=== PATIENT | male | born 1995 | race Caucasian/White ===

== ENCOUNTER 2019-09-14 08:56 | Emergency (ER) | payer BC ==
--- OUTSIDE RECORDS SUMMARY | 2019-09-14 08:58 | XMS REPORT | Continuity of Care Document ---
:1995 Author Organization [facility] t Address [address] [place] [address] Care Team Providers Name Role Phone Unavailable Unavailable Unavailable Problems Condition Condition Condition Status Onset Resolution Last Treating Co mments Source Name Details Category Date Date Treatment Clinician Date Anxiety Anxiety Problem Active [facility] 00:00: Medical 00 Group Gastroesop Gastroesop Problem Active [facility] h[facility]al hageal 14 da reflux Reflux 00:00: Medical disease Disease 00 Group without without esophagiti Esophagiti s s Allergies, Adverse Reactions, Alerts This patient has no known allergies or adverse reactions. Social History Smoking Status Start Date Stop Date Source Never Smoker [facility] Medications Ordered Filled Start Stop Current Ordering Indication Dosage Frequency Signature Comments Components Source Medication Medication Date Date Medication? Clinician (SIG) Name Name Nexium Nexium No Nexium [facility] Vital Signs Vital Name Observation Time Observation Value Comments Source BP Diastolic 2019-07-18 00:00:00 93 mm[Hg] [facility] Height 2019-07-18 00:00:00 65 [in_i] [facility] BMI (Body Mass 2019-07-18 00:00:00 28.5 kg/m2 [facility] Group BP Systolic 2019-07-18 00:00:00 150 mm[Hg] [facility] Body Weight 2019-07-18 00:00:00 2736 [oz_av] [facility] Procedures This patient has no known procedures. Plan of Care Planned Activity Planned Date Details Comments Source Diagnostic Test 2019-07-18 H pylori Ab, serum [facility] Pending 00:00:00 [code = H pylori Ab, Group serum] Diagnostic Test 2019-07-18 CBC w/ auto diff [facility]ending 00:00:00 [code = CBC w/ auto Group diff] Diagnostic Test 2019-07-18 CMP, serum or plasma [facility] Pending 00:00:00 [code = CMP, serum Group or plasma] Diagnostic Test 2019-07-18 TSH, serum or plasma [facility] Pending 00:00:00 [code = TSH, serum Group or plasma] Diagnostic Test 2019-07-18 hemoglobin A1c, QN, [facility] Pending 00:00:00 blood [code = Group hemoglobin A1c, QN, blood] Future Appointment 2019-09-17 Tanya Iverson [facility] 00:00:00 [facility] [address]; [place] [address] Encounters Start End Encounter Admission Attending Care Care Encounter Source Date/Time Date/Time Type Type Clinicians Facility Department ID 2019-07-18 2019-07-18 Jos Freedrick [facility] [place] - [id number] [facility] 00:00:00 00:00:00 MD [place]: [address], [facility] [place] [place] [address] , Ph. Results This patient has no known results.
[2019-09-14] MEDS ORDERED: NA CHLORIDE 0.9% 1,000 ML ONE ×2 (09:57→11:18)
[2019-09-14 10:06] LABS: Absolute Lymphocytes (CBC) 0.7 K/uL (0.7-4.9); Basophils % 0.2 % (0-1.3); Hematocrit 43.2 % (39.6-49.0); MPV 9.5 fL (7.6-11.3); RBC Red Blood Cell Count 5.21 M/uL (4.33-5.43)
[2019-09-14 10:14] LABS: Protime INR 1.03
--- NOTE | 2019-09-14 10:25 | RAD REPORT ---
EXAM DESCRIPTION: CT - Head Brain Wo Cont - 09/14/2019 10:10 am CLINICAL HISTORY: Trauma;Syncope COMPARISON: No comparisons TECHNIQUE: Axial 5 mm thick images of the head were obtained without IV contrast. All CT scans are performed using dose optimization technique as appropriate and may include automated exposure control or mA/KV adjustment according to patient size. FINDINGS: No intracranial hemorrhage, mass, edema or shift of mid-line structures. No acute infarcti on changes seen. No abnormal extra-axial fluid collections. Ventricles are normal. Mastoid air cells and visualized portions of the paranasal sinuses are clear. No acute bony findings. IMPRESSION: Negative non-contrast CT head examination.
--- NOTE | 2019-09-14 10:32 | RAD REPORT ---
EXAM DESCRIPTION: RAD - Chest Single View - 09/14/2019 10:02 am CLINICAL HISTORY: TRAUMA, chest pain TECHNIQUE: AP portable chest image was obtained 09/14/2019 10:02 am . FINDINGS: Lungs are clear. Heart and vasculature are normal. No measurable pleural effusion and no p neumothorax. No acute bony abnormality seen. No acute aortic findings suspected. IMPRESSION: No acute cardiopulmonary process.
[2019-09-14 10:34] LABS: Albumin 4.4 g/dL (3.4-5.0); Bilirubin Direct 0.1 mg/dL (0-0.2); Bilirubin Total 0.5 mg/dL (0.2-1.0); Magnesium 2.2 mg/dL (1.8-2.4); Potassium 3.8 mmol/L (3.5-5.1)
--- NOTE | 2019-09-14 11:41 | EDPHYS ---
Physician Documentation [facility] Name: Chetan Ya Age: 24 yrs Sex: Male : 1995 Arrival Date: 09/14/2019 Time: 08:58 Bed 15 Private MD: ED Physician Amado Balbuena HPI: 09/13 10:32 This 24 yrs old Male presents to ER via Wheelchair with complaints of Passed jr8 Out Prior To Arrival, Probable Seizure. 10:32 The patient has experienced syncope, collapsed, lost consciousness. Onset: The jr8 symptoms/episode began/occurred acutely, today. Duration: This was a single episode. Associated injury: Head/face: swelling, tenderness. Associated signs and symptoms: Pertinent positives: lightheadedness. Current symptoms: Currently, the patient is not experiencing any symptoms, the patient feels back to baseline, no decreased level of consciousness, no confusion, no dysphasia, no headache, no paralysis. The patient has not experienced similar symptoms in the past. The patient has not recently seen a physician. Patient stated that about 5 months ago fell and hit head. Since then have had headaches. Today while walking to go somewhere started to feel lightheaded and then had syncopal episode. Witnessed by bystanders . Historical: - Allergies: 09:26 No Known Allergies; iw - Home Meds: 09:26 None [Active]; iw - PMHx: 09:26 acid reflux; iw - PSHx: 09:26 Hernia repair; iw - Immunization history:: Adult Immunizations. - Social history:: Smoking status: Patient denies any tobacco usage or history of. ROS: 10:32 Eyes: Negative for injury, pain, redness, and discharge, ENT: Negative for injury, jr8 pain, and discharge, Neck: Negative for injury, pain, and swelling, Cardiovascular: Negative for chest pain, palpitations, and edema, Respiratory: Negative for shortness of breath, cough, wheezing, and pleuritic chest pain, Abdomen/GI: Negative for abdominal pain, nausea, vomiting, diarrhea, and constipation, Back: Negative for injury and pain, MS/Extremity: Negative for injury and deformity, Skin: Negative for injury, rash, and discoloration. 10:32 Neuro: Positive for syncope. Exam: 10:32 Eyes: Pupils equal round and reactive to light, extra-ocular motions intact. Lids and jr8 lashes normal. Conjunctiva and sclera are non-icteric and not injected. Cornea within normal limits. Periorbital areas with no swelling, redness, or edema. ENT: Nares patent. No nasal discharge, no septal abnormalities noted. Tympanic membranes are normal and external auditory canals are clear. Oropharynx with no redness, swelling, or masses, exudates, or evidence of obstruction, uvula midline. Mucous membranes moist. Neck: Trachea midline, no thyromegaly or masses palpated, and no cervical lymphadenopathy. Supple, full range of motion without nuchal rigidity, or vertebral point tenderness. No Meningismus. Chest/axilla: Normal chest wall appearance and motion. Nontender with no deformity. No lesions are appreciated. Cardiovascular: Regular rate and rhythm with a normal S1 and S2. No gallops, murmurs, or rubs. Normal PMI, no JVD. No pulse deficits. Respiratory: Lungs have equal breath sounds bilaterally, clear to auscultation and percussion. No rales, rhonchi or wheezes noted. No increased work of breathing, no retractions or nasal flaring. Abdomen/GI: Soft, non-tender, with normal bowel sounds. No distension or tympany. No guarding or rebound. No evidence of tenderness throughout. Back: No spinal tenderness. No costovertebral tenderness. Full range of motion. Skin: Warm, dry with normal turgor. Normal color with no rashes, no lesions, and no evidence of cellulitis. MS/ Extremity: Pulses equal, no cyanosis. Neurovascular intact. Full, normal range of motion. Neuro: Awake and alert, GCS 15, oriented to person, place, time, and situation. Cranial nerves II-XII grossly intact. Motor strength 5/5 in all extremities. Sensory grossly intact. Cerebellar exam normal 10:32 Head/face: Noted is hematoma, that is mild, of the mid occipital region, a laceration(s), that is superficial, 1 cm(s), of the top of head. Vital Signs: 09:19 BP 127 / 84; Pulse 108; Resp 16; Temp 98.7; Pulse Ox 100% on R/A; Weight 77.11 kg; iw Height 5 ft. 8 in. (172.72 cm); 09:27 Pulse 86; Resp 16; Pulse Ox 100% on R/A; iw 10:50 BP 136 / 76 Supine; Pulse 44; Resp 16; Pulse Ox 100% on R/A; mh5 10:52 BP 132 / 87 Sitting; Pulse 54; Resp 17; Pulse Ox 100% on R/A; mh5 10:54 BP 116 / 89 Standing; Pulse 100; Resp 12; Pulse Ox 100% on R/A; mh5 11:50 BP 127 / 80; Pulse 86; Resp 16; Pulse Ox 100% ; rb1 12:41 BP 132 / 85; Pulse 100; Resp 11; Pulse Ox 100% ; rb1 09:19 Body Mass Index 25.85 (77.11 kg, 172.72 cm) iw Dolly Coma Score: 09:43 Eye Response: spontaneous(4). Verbal Response: oriented(5). Motor Response: obeys rb1 commands(6). Total: 15. MDM: 09:28 Patient medically screened. jr8 11:39 Data reviewed: vital signs, nurses notes, lab test result(s), and as a result, I will jr8 discharge patient. Data interpreted: Pulse oximetry: on room air is 100 %. Interpretation: normal. Counseling: I had a detailed discussion with the patient and/or guardian regarding: the historical points, exam findings, and any diagnostic results supporting the discharge/admit diagnosis, lab results, the need for outpatient follow up, a family practitioner, to return to the emergency department if symptoms worsen or persist or if there are any questions or concerns that arise at home. Response to treatment: the patient's symptoms have markedly improved after treatment, patient is well hydrated. 11:39 ED course: Patient doing better after being hydrated. Was orthostatic positive. VS jr8 stable. Will d/c home to f/u with PCP. Knows to come back if worse . 09/13 09:46 Order name: PT-INR; Complete Time: 10:22 09/13 09:46 Order name: Basic Metabolic Panel; Complete Time: 10:36 09/13 09:46 Order name: CBC with Diff 09/13 09:46 Order name: LFT's; Complete Time: 10:36 09/13 09:46 Order name: Magnesium; Complete Time: 10:36 09/13 09:46 Order name: XRAY Chest (1 view); Complete Time: 10:36 09/13 09:46 Order name: EKG; Complete Time: 09:47 09/13 09:46 Order name: Cardiac monitoring; Complete Time: :09/13 09:46 Order name: EKG - Nurse/Tech; Complete Time: 11:09/13 09:46 Order name: IV Saline Lock; Complete Time: :09/13 09:46 Order name: Labs collected and sent; Complete Time: :09/13 09:46 Order name: CT Head Brain wo Cont; Complete Time: :09/13 09:46 Order name: O2 Per Protocol; Complete Time: :09/13 09:46 Order name: O2 Sat Monitoring; Complete Time: 09/13 09:46 Order name: Orthostatics; Complete Time: 11: Administered Medications: 09:55 Drug: NS 0.9% 1000 ml Route: IV; Rate: 1000 ml; Site: right antecubital; rb1 11:15 Follow up: IV Status: Completed infusion rb1 11:15 Drug: NS 0.9% 1000 ml Route: IV; Rate: 1000 ml; Site: right antecubital; rb1 12:33 Follow up: IV Status: Completed infusion rb1 Disposition: 15:24 Co-signature as Attending Physician, Amado Balbuena MD. rn Disposition: 09/14/19 11:40 Discharged to Home. Impression: Syncope and collapse, Dehydration. - Condition is Stable. - Discharge Instructions: Dehydration, Adult, Syncope. - Medication Reconciliation Form, Thank You Letter, Antibiotic Education, Prescription Opioid Use, Work release form form. - Follow up: Private Physician; When: 2 - 3 days; Reason: Recheck today's complaints, Continuance of care, Re-evaluation by your physician. - Problem is new. - Symptoms have improved. Signatures: Dispatcher [employer] Selena Stein, RN Amado Ritter MD MD rn Roszak, Josh, PA PA jr8 Abby Tavares, ANIBAL RN rb1 Corrections: (The following items were deleted from the chart) 12:46 11:40 09/14/2019 11:40 Discharged to Home. Impression: Syncope and collapse; rb1 Dehydration. Condition is Stable. Forms are Work release form, Medication Reconciliation Form, Thank You Letter, Antibiotic Education, Prescription Opioid Use. Follow up: Private Physician; When: 2 - 3 days; Reason: Recheck today's complaints, Continuance of care, Re-evaluation by your physician. Problem is new. Symptoms have improved. jr8
--- NOTE | 2019-09-14 11:41 | ER ---
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 Coronavirus screen: Proceed with normal triage. Patient denies a cough. Patient denies shortness of breath or difficulty breathing. Patient denies measured and/or subjective temperature greater than 100.4F prior to today's visit. Patient denies travel on a cruise ship or to a country the [facility] currently lists as an affected area. Patient denies contact with known and/or suspected case of COVID-19. Coronavirus screen: Ebola Screen: Patient negative for fever greater than or equal to 101.5 degrees Fahrenheit, and additional compatible Ebola Virus Disease symptoms Patient denies exposure to infectious person. Patient denies travel to an Ebola-affected area in the 21 days before illness onset. No symptoms or risks identified at this time. Initial Sepsis Screen: Does the patient meet any 2 criteria? No. Patient's initial sepsis screen is negative. Does the patient have a suspected source of infection? No. Patient's initial sepsis screen is negative. Risk Assessment: Do you want to hurt yourself or someone else? Patient reports no desire to harm self or others. Onset of symptoms was September 14, 2019. 09:19 Method Of Arrival: Wheelchair 09:19 Acuity: ALEJANDRA 3 iw Historical: - Allergies: 09: No Known Allergies; iw - Home Meds: : None [Active]; iw - PMHx: : acid reflux; iw - PSHx: 09:26 Hernia repair; iw - Immunization history:: Adult Immunizations. - Social history:: Smoking status: Patient denies any tobacco usage or history of. Screenin:43 Abuse screen: Denies threats or abuse. Nutritional screening: No deficits noted. rb1 Tuberculosis screening: No symptoms or risk factors identified. Fall Risk Fall in past 12 months (25 points). No secondary diagnosis (0 pts). IV access (20 points). Ambulatory Aid- None/Bed Rest/Nurse Assist (0 pts). Gait- Normal/Bed Rest/Wheelchair (0 pts) Mental Status- Oriented to own ability (0 pts). Total Idaz Fall Scale indicates High Risk Score (45 or more points). Fall prevention measures have been instituted. Side Rails Up X 2 Placed Close to Nursing Station 1:1 Attendant Assigned Frequent Obs/Assessments Occuring As available patient and family educated on Fall Prevention Program and Strategies. Assessment: 09:43 General: Appears comfortable, Behavior is anxious. Pain: Denies pain. Neuro: Level of rb1 Consciousness is awake, alert, obeys commands, Oriented to person, place, time, situation. Cardiovascular: Capillary refill < 3 seconds. Respiratory: Airway is patent Respiratory effort is even, unlabored, Respiratory pattern is regular, symmetrical. GI: No signs and/or symptoms were reported involving the gastrointestinal system. : No signs and/or symptoms were reported regarding the genitourinary system. Derm: Skin is pink, warm \\T\\ dry. Musculoskeletal: Range of motion: intact in all extremities, Hematoma noted to the back of his head. 10:02 Reassessment: Pt. went to CT. rb1 11:00 Reassessment: Patient appears in no apparent distress at this time. Patient and/or rb1 family updated on plan of care and expected duration. Pain level reassessed. Patient is alert, oriented x 3, equal unlabored respirations, skin warm/dry/pink. Patient denies pain at this time. 11:49 Reassessment: Patient appears in no apparent distress at this time. No changes from rb1 previously documented assessment. Pt. is talking on his telephone. 11:54 Reassessment: Discharge pending due to IV fluids infusing, provider wants the pt. to rb1 receive the all the fluids before being discharged. 12:42 Reassessment: Patient appears in no apparent distress at this time. Patient and/or rb1 family updated on plan of care and expected duration. Pain level reassessed. Patient is alert, oriented x 3, equal unlabored respirations, skin warm/dry/pink. Pt. ambulated around the nurses station without difficulty. Vital Signs: 09:19 BP 127 / 84; Pulse 108; Resp 16; Temp 98.7; Pulse Ox 100% on R/A; Weight 77.11 kg; iw Height 5 ft. 8 in. (172.72 cm); 09:27 Pulse 86; Resp 16; Pulse Ox 100% on R/A; iw 10:50 BP 136 / 76 Supine; Pulse 44; Resp 16; Pulse Ox 100% on R/A; mh5 10:52 BP 132 / 87 Sitting; Pulse 54; Resp 17; Pulse Ox 100% on R/A; mh5 10:54 BP 116 / 89 Standing; Pulse 100; Resp 12; Pulse Ox 100% on R/A; mh5 11:50 BP 127 / 80; Pulse 86; Resp 16; Pulse Ox 100% ; rb1 12:41 BP 132 / 85; Pulse 100; Resp 11; Pulse Ox 100% ; rb1 09:19 Body Mass Index 25.85 (77.11 kg, 172.72 cm) iw Dolly Coma Score: 09:43 Eye Response: spontaneous(4). Verbal Response: oriented(5). Motor Response: obeys rb1 commands(6). Total: 15. ED Course: 08:58 Patient arrived in ED. as 09:25 Triage completed. iw 09:26 Arm band placed on. iw 09:28 Abby Tavares, RN is Primary Nurse. rb1 09:28 Homer Arroyo PA is PHCP. jr8 09:28 Amado Balbuena MD is Attending Physician. jr8 09:43 Patient has correct armband on for positive identification. Bed in low position. Call rb1 light in reach. Side rails up X 1. Pulse ox on. NIBP on. 09:43 Seizure precautions initiated. rb1 09:55 Inserted saline lock: 22 gauge in right antecubital area, using aseptic technique. rb1 Blood collected. 10:02 XRAY Chest (1 view) In Process Unspecified. EDMS 10:08 CT completed. Patient tolerated procedure well. Patient moved back from CT. bq 10:10 CT Head Brain wo Cont In Process Unspecified. EDMS 11:01 EKG done, by ED staff, reviewed by Homer HEADLEY. 5 11:02 Warm blanket given. quality assurance monitor final on. 5 11:48 Wound care: to laceration located on center back of head was cleaned with soap and mh5 water. 12:43 No provider procedures requiring assistance completed. IV discontinued, intact, rb1 bleeding controlled, No redness/swelling at site. Pressure dressing applied. Administered Medications: 09:55 Drug: NS 0.9% 1000 ml Route: IV; Rate: 1000 ml; Site: right antecubital; rb1 11:15 Follow up: IV Status: Completed infusion rb1 11:15 Drug: NS 0.9% 1000 ml Route: IV; Rate: 1000 ml; Site: right antecubital; rb1 12:33 Follow up: IV Status: Completed infusion rb1 Outcome: 11:40 Discharge ordered by . jr8 12:45 Discharged to home ambulatory. rb1 12:45 Condition: stable 12:45 Discharge instructions given to patient, Instructed on discharge instructions, follow up and referral plans. Demonstrated understanding of instructions, follow-up care, Prescriptions given X none 12:46 Patient left the ED. rb1 Signatures: Dispatcher [employer] EDMS Vinita Tate Amelia as Selena Morse RN RN iw Roszak, Josh, PA PA [facility] Abby Tavares RN RN [facility] Ramya Pacheco [facility] Corrections: (The following items were deleted from the chart) 09:34 09:19 Chief complaint: Patient states: a few months ago I fell out of my flatbed truck iw at work and hit his head, was approx 5 foot fall, no LOC, was seen at urgent care at that time, no tests done. 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
[2019-09-14 12:52] VITALS: TEMP 98.7; O2SAT 100
[2019-09-14 13:00] VITALS: BP 132/85
[2019-09-14 13:37] LABS: Blood Morphology Comment NOT SEEN (NOT SEEN); Platelet Estimate ADEQ; Urine White Blood Cell Casts OK
== END 2019-09-14 12:46 | disposition home or self-care (01) ==
LOC: ER 08:56
DX: E86.0 Dehydration (principal)
CPT/HCPCS: 96361; 93005; 85025; 80048; 36415; 83735; 85610; 80076; 70450; 71045; 96360; 99285; J7030 ×2

== ENCOUNTER 2020-01-26 08:55 | Emergency (ER) | payer BC ==
--- OUTSIDE RECORDS SUMMARY | 2020-01-26 08:57 | XMS REPORT | Encounter Summary ---
:1995 Author Care Team Providers Name Role Phone Jos Lockhart MD Primary Care Provider [phone] Reason for Visit Gastroesophageal reflux disease without esophagitis Instructions 1. Gastroesophageal reflux disea se without esophagitis general surgery referral omeprazole 40 mg capsule,d elayed release Discussion Note: None recorded.Patient educational handouts: No information available. Plan of Care Patient Instructions F/U with Dr. Keys for EGD. Reminders Provider Appointments New Patient Grady Choe 11/07/2019 MD Ludmila 11:30AM Lab None recorded. Referral General Surgery Referral 10/28/2019 Procedures None recorded. Surgeries None recorded. Imaging None recorded. Medications Name Start Date apple cider vinegar omeprazole 40 mg capsule,delayed release Take 1 capsule every day by oral route for 90 days. Medications Administered None recorded. Vitals Height Blood Pressure 65 in 123/87 mm[Hg] Results Lab Results None recorded. Allergies Code Code System Name Reaction Severity Status Onset NKDA Problems Name Status Onset Date Source Anxiety Active 07/18/2019 Gastroesophageal Reflux Disease without Active 07/18/19 20 Esophagitis Procedures Date Name Performed by 03/06/2009 Hernia Repair Information not av lab Vaccine List None recorded. Social History Tobacco Smoking Status Never Smoker Past Encounters 10/28/2019 Gastroesophageal Reflux Disease without Esophagitis Rachel Choe, NUCLEAR PHARMACIST: [address] [place] [address] [address], [place] [address], Ph. History of Present Illness Note: F/U GERD. Taking apple cider vinegar tablets. History of Zantac and nexium use for >6 months. H. pylori negative.Review of Systems: ROS as noted in the HPI Review of Systems None recorded. Physical Exam General Adult Exam - Male Reported By: Patient Constitutional: General Appearance: healthy- appearing, well-nourished, well-developed. Level of Dis tress: NAD. Ambulation: ambulating normally Psychiatric: Insight: good judgement. Men manoj Status: active and alert, normal mood, normal affect. Orienta tion: to time, to place, to person. Memory: recent memory normal , remote memory normal Head: Head: normocephalic, atrauma tic Eyes: Lids and Conjunctivae: non-i njected, no discharge, no pallor. Pupils: PERRLA. Corneas: zuri ssly intact. EOM: EOMI. Lens: clear. Sclerae: non-icteric. Vision : peripheral vision grossly intact, acuity grossly intact ENMT: Ears: no lesions on external ear, EACs clear, TMs clear. Hearing: no hearing loss Neck: Neck: supple, trachea midlin e, no masses, FROM. Lymph Nodes: no cervical LAD, no supraclavic ular LAD, no axillary LAD, no inguinal LAD. Thyroid: no enlargement , non-tender, no nodules Lungs: Respiratory effort: no dyspn ea. Percussion: no dullness, flatness, or hyperresonance. Auscultat ion: breath sounds normal, good air movement, CTA except as note d, no wheezing, no rales/crackles, no rhonchi Cardiovascular: Apical Impulse: not displace d. Heart Auscultation: RRR, normal S1, normal S2, no murmurs, no ru bs, no gallops. Neck vessels: no carotid bruits. Pulses inclu ding femoral / pedal: normal throughout Abdomen: Bowel Sounds: normal. Inspec tion and Palpation: soft, non-distended, no guarding, no rebound tenderness, no masses, no CVA tenderness, epigastric t enderness. Liver: non-tender, no hepatomegaly. Spleen: non-te nder, no splenomegaly. Hernia: none palpable Musculoskeletal:: Motor Strength and Tone: nor mal, normal tone. Joints, Bones, and Muscles: normal movement of all extremities, no bony abnormalities, no contractures, no malalign ment, no tenderness. Extremities: no cyanosis, no edema, no varic osities, no palpable cord Neurologic: Gait and Station: normal gai t, normal station. Cranial Nerves: grossly intact. Sensation: g rossly intact. Reflexes: DTRs 2+ bilaterally throughout. Coor dination and Cerebellum: [id number] intact, no tremor Skin: Inspection and palpation: no rash, no lesions, no ulcer, no abnormal nevi, no induration , no nodules, good turgor, no jaundice. Nails: normal Back: Thoracolumbar Appearance: no rmal curvature
--- OUTSIDE RECORDS SUMMARY | 2020-01-26 08:57 | XMS REPORT | Continuity of Care Document ---
:1995 Author Organization [facility] t Address [address] [place] [address] Care Team Providers Name Role Phone Unavailable Unavailable Unavailable Problems Condition Condition Condition Status Onset Resolution Last Treating Co mments Source Name Details Category Date Date Treatment Clinician Date Anxiety Anxiety Problem Active [facility] 5-14 da 00:00: Medical 00 Group Gastroesop Gastroesop Problem Active [facility] hageal hageal 5-14 da reflux Reflux 00:00: Medical disease Disease 00 Group without without esophagiti Esophagiti s s Allergies, Adverse Reactions, Alerts This patient has no known allergies or adverse reactions. Social History Smoking Status Start Date Stop Date Source Never Smoker [facility] Medications Ordered Filled Start Stop Current Ordering Indication Dosage Frequency Signature Comments Components Source Medication Medication Date Date Medication? Clinician (SIG) Name Name omeprazole omeprazole No omeprazole [facility] 40 mg 40 mg 40 mg da capsule,del capsule,del capsule,de [facility] ayed ayed layed Group release release release Take 1 Take 1 Take 1 capsule capsule capsule every day every day every day by oral by oral by oral route for route for route for 90 days. 90 days. 90 days. Vital Signs Vital Name Observation Time Observation Value Comments Source BP Diastolic 2019-11-07 00:00:00 84 mm[Hg] [facility] Height 2019-11-07 00:00:00 65 [in_i] [facility] BMI (Body Mass 2019-11-07 00:00:00 28.5 kg/m2 [facility] [employer] [facility]) [facility] BP Systolic 2019-11-07 00:00:00 130 mm[Hg] [facility] Body Weight 2019-11-07 00:00:00 171 [lb_av] [facility] BP Diastolic 2019-10-28 00:00:00 87 mm[Hg] [facility] Height 2019-10-28 00:00:00 65 [in_i] [facility] BP Systolic 2019-10-28 00:00:00 123 mm[Hg] [facility] BP Diastolic 2019-07-18 00:00:00 93 mm[Hg] [facility] Height 2019-07-18 00:00:00 65 [in_i] [facility] BMI (Body Mass 2019-07-18 00:00:00 28.5 [facility] BP Systolic 2019-07-18 00:00:00 150 mm[Hg] [facility] Body Weight 2019-07-18 00:00:00 2736 [oz_av] [facility] Procedures Procedure Date / Time Performed Performing Clinician Sour e unlisted imaging order 2019-11-07 00:00:00 [facility] Hernia Repair 2009-03-06 00:00:00 [facility] Encounters Start End Encounter Admission Attending Care Care Encounter Source Date/Time Date/Time Type Type Clinicians Facility Department ID 2019-11-07 2019-11-07 Pritesh [facility] [place] - [id number] [facility] 00:00:00 00:00:00 Дмитрий Rodríguez MD: [facility] l [address] [place] [address] [address], [place] [address] , Ph. 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 2019-07-18 2019-07-18 Jos Frederick [facility] [place] - [id number] [facility] 00:00:00 00:00:00 MD Richy: [facility] [address] [place] [address] - [address], [facility] [address] , Ph. Results This patient has no known results.
--- OUTSIDE RECORDS SUMMARY | 2020-01-26 08:57 | XMS REPORT | Encounter Summary ---
:1995 Author Care Team Providers Name Role Phone Jos Lockhart MD Primary Care Provider [phone] Reason for Visit New Patient Instructions 1. Gastro-esophageal reflux dise ase with esophagitis endoscopy, gordon (PROC) esophageal manometry (SURG ) esophagogastroduodenoscopy (SURG) gastric emptying study (GA OC) unlisted imaging order - h epatobiliary duct W kinavac Discussion Note: None recorded.Patient educational handouts: No information available. Plan of Care Reminders Provider Appointments None recorded. Lab None recorded. Referral None recorded. Procedures Endoscopy, Gordon (PROC) 0 Gastric Emptying Study (PROC) 0 Surgeries Esophageal Manometry (SURG) 0 Esophagogastroduodenoscopy (SURG) 0 Imaging Unlisted Imaging Order [facility] [address] (Scheduling) Medications Name Start Date omeprazole 40 mg capsule,delayed release Take 1 capsule every day by oral route for 90 days. Medications Administered None recorded. Vitals Height Weight BMI Blood Pressure 5 ft 5 in 171 lbs 28.5 kg/m2 130/84 mm[Hg] Results Lab Results None recorded. Allergies Code Code System Name Reaction Severity Status Onset NKDA Problems Name Status Onset Date Source Anxiety Active 07/18/2019 Gastroesophageal Reflux Disease without Active 07/18/19 20 Esophagitis Procedures Date Name Performed by 03/06/2009 Hernia Repair Information not avai lable 11/07/2019 Unlisted Imaging Order [facility] (Scheduling) [address] [place] [address] (Work Place) Vaccine List None recorded. Social History Tobacco Smoking Status Never Smoker Past Encounters 11/07/2019 Gastro-esophageal Reflux Disease with Es ophagitis Pritesh Keys MD: [address] [place] [address] [address], [place] [address], Ph. [phone] 10/28/2019 Gastroesophageal Reflux Disease without Esophagitis Rachel Choe, DEBT MANAGEMENT COUNSELOR: [address] [place] [address] [address], [place] [address], Ph. History of Present Illness Note: cc: gerd<div>HPI: Pt is a 24 yo male with reflux symptoms. Complains of heartburn and regurgitation. Some bloating but no dysphagia.</div><div>Has been on PPI therapy for 4 yrs< /div><div>No prior workup</div><div>pmh: gerd</div><div>psh: hernia repair</div><div>nkda</div><div>tob neg</div><div>etoh occ </div><div>ros ow neg</div><div>
</div><div>Reflux
&l t;br>Discussed and illustrated the anatomy associated with gastro-esophageal reflux disease (GERD). Discussed signs and symptoms of GERD and relationship of typical signs and symptoms to atypical signs and symptoms referred to as Laryngeal-Pharyngeal Reflux Disease (LPR). Reviewed the concept of pressure differential that defines the lower esophageal sphincter (LES) and the signs and symptoms of esophageal dysmotility and the similarity and overlap of these with the signs and symptoms of GERD. Discussed the signs and symptoms of gastroparesis and the similarity and overlap of these with the signs and symptoms of GERD. Discussed the signs and symptoms of biliary disease and the similarity and overlap of these with the signs and symptoms of GERD. Reviewed the workup to identify and distinguish GERD from other disease processes. Discussed medical therapy for gastroparesis and side effects of thetwo major medications: metoclopramide (tardive dyskinesia) and erythromycin (interference with cholesterol medications, rash and sun sensitivity). Discussed surgery for gastroparesis (pyloromyotomy), which is not recommended at the time of hiatal repair and fundoplication. Discussed surgical therapy for biliary dyskinesia or gallstones (laparoscopic cholecystectomy)

Reviewed lifestyle changes for GERD. Reviewed medical therapies for GERD. Discussed risks of H2 antagonist therapy and proton pump inhibitor therapy including altered normal physiology, decreased absorption of heavy metals and secondary consequences such as early bone loss and fracture. Increased risk of pneumonias and colitis. Increased incidence of esophageal cancer.

Discussed surgical therapy of GERD and indications for surgical therapy. Discussed history of hiatal hernia repairs and Matteo fundoplication. Discussed side effect of bloating syndrome. Reviewed alternatives to Matteo fundoplication including Jimmie, Hill, Toupet and Lexi modifications. Discussed transoral incisionless fundoplication and absence of bloating syndrome from this procedure as a defining feature of the procedure. Discussed the evaluation of the esophageal hiatus and indications for hiatal hernia repair.

Reviewed risks including bleeding, infection, vagal nerve dysfunction, recurrent GERD, perforation of esophagus or stomach, leak of intestinal content, possible need for longer hospital stay, possible need for further procedures. Reviewed the typical hospital stay associated with transoral incisionless fundoplication and hiatal hernia repair. Discussed the postoperative experience, pain and dietary limitations including no carbonated beverages for lifetime. Discussed the six week postoperative recovery diet. Discussed dysphagia and esophageal spasm. Reviewed esophageal musculature and pain associated with strain of the esophagealmusculature. Reviewed GI cocktail for esophageal spasm and dysphagia. Discussed possible need for esophageal dilation postoperatively due to fibrosis of esophagus in the setting of prolonged GERD. Discussed referred pain from irritation of the phrenic nerve to the shoulder, compounded medications thatmay improve pain. Pt verbalized understanding of workup, procedure and risks, and all questions wereanswered to the patient's satisfaction.

Handout summarizing this information has been provided to the patient. Symptoms survey given to pt.</div> Review of Systems General Surgery ROS Reported By: Patient Constitutional: Constitutional: no fever, no night sweats, no significant weight gain, no significant weight loss, no exercise intolerance Eyes: Eyes: no dry eyes, no irrita tion, no vision change ENMT: Ears: no difficulty hearing, no ear pain. Nose: no frequent nosebleeds, no nose/sinus pr oblems. Mouth/Throat: no sore throat, no bleeding gums, no snoring , no dry mouth, no mouth ulcers, no oral abnormalities, no teeth problems, No Post Nasal Dripping, Constantly clearing the thro at, hiccups, itching throat, (normal) weak voice: constant Respiratory: Respiratory: no cough, no wh eezing, no shortness of breath, no coughing up blood Cardiovascular: Cardiovascular: no chest anne marie n, no arm pain on exertion, no shortness of breath when wal alphonse, no shortness of breath when lying down, no palpitations, no kn own heart murmur Gastrointestinal: Gastrointestinal: no abdomin al pain, no vomiting, normal appetite, no diarrhea, not vomiting bl ood Genitourinary: Genitourinary: no incontinen ce, no difficulty urinating, no hematuria, no increased freq uency Musculoskeletal: Musculoskeletal: no muscle a ches, no muscle weakness, no arthralgias/joint pain, no b ack pain, no swelling in the extremities Integumentary: Skin: no abnormal mole, no j aundice, no rashes Neurologic: Neurologic: no loss of consc iousness, no weakness, no numbness, no seizures, no dizziness, no h eadaches Physical Exam Pre-Op Exam Reported By: Patient Constitutional: General Appearance: healthy- appearing, well-nourished, well-developed Psychiatric: Orientation: to time, to edna ce, to person Skin: Inspection and palpation: no rash, no lesions, no induration Eyes: Pupils: PERRLA. EOM: EOMI ENMT: Lips, Teeth, and Gums: marlee l dentition Neck: Neck: supple, FROM Lungs: Auscultation: breath sounds normal, CTA except as noted, no wheezing, no rales/crackles, no rhonchi Cardiovascular: Heart Auscultation: RRR, no murmurs, no rubs, no gallops. Neck vessels: no carotid bruits. Pulses including femoral / pedal: normal throughout Abdomen: Bowel Sounds: normal. Inspec tion and Palpation: soft, non-distended, no tenderness (no guarding, no rebound), no masses, no CVA tenderness. Liver: no n-tender, no hepatomegaly. Spleen: non-tender, no splenomegaly Back: Thoracolumbar Appearance: no rmal curvature Musculoskeletal:: Joints, Bones, and Muscles: normal movement of all extremities, no malalignment, no tenderness. Extremities: no cyanosis, no edema, no varicosities Neurologic: Gait and Station: normal gai t, normal station. Cranial Nerves: grossly intact. Sensation: g rossly intact. Reflexes: DTRs 2+ bilaterally throughout
--- NOTE | 2020-01-26 09:18 | EDPHYS ---
Physician Documentation [facility] Name: Chetan Ya Age: 24 yrs Sex: Male : 1995 Arrival Date: 01/26/2020 Time: 09:03 Bed 15 Private MD: ED Physician Amado Balbuena HPI: 01/25 09:12 This 24 yrs old Male presents to ER via Ambulatory with complaints of Stepped cp on nail. 09:12 The patient presents with a puncture wound, from a nail. The complaints affect the cp right foot. Onset: The symptoms/episode began/occurred last night. Associated signs and symptoms: Pertinent negatives: fever, rash, swelling, warmth. 09:12 Patient reports he was wearing boots when injury occurred. cp Historical: - Allergies: 09:10 No Known Allergies; sv - PMHx: 09:10 acid reflux; sv - PSHx: 09:10 Hernia repair; sv - Immunization history:: Adult Immunizations unknown, Last tetanus immunization: unknown. - Social history:: Smoking status: unknown. ROS: 09:13 Constitutional: Negative for body aches, chills, fever. cp 09:13 Cardiovascular: Negative for chest pain. 09:13 Respiratory: Negative for cough, shortness of breath, wheezing. 09:13 Skin: Positive for puncture, of the plantar surface of right foot. 09:13 All other systems are negative. Exam: 09:14 Head/Face: Normocephalic, atraumatic. cp 09:14 Constitutional: The patient appears in no acute distress, alert, awake, well developed, well nourished. 09:14 Skin: injury, that can be described as without bleeding, minimal erythema, minimal swelling and tenderness, puncture(s), that are superficial, of the plantar surface of right foot. Vital Signs: 09:08 Weight 74.84 kg; Height 5 ft. 7 in. (170.18 cm); sv 09:31 BP 121 / 86; Pulse 70; Resp 16; Temp 98.6; Pulse Ox 99% on R/A; zb 09:08 Body Mass Index 25.84 (74.84 kg, 170.18 cm) sv MDM: 09:11 Patient medically screened. cp 09:15 Differential diagnosis: fracture, foreign body, cellulitis. cp 09:16 Data reviewed: vital signs, nurses notes, and as a result, I will discharge patient. cp Counseling: I had a detailed discussion with the patient and/or guardian regarding: the historical points, exam findings, and any diagnostic results supporting the discharge/admit diagnosis, to return to the emergency department if symptoms worsen or persist or if there are any questions or concerns that arise at home. 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 Exp: zb 05/17/2021. Lot #: [id number]. } Route: IM; Site: right deltoid; 09:30 Follow up: Response: No adverse reaction zb Disposition: : Chart complete. cp 09:54 Co-signature as Attending Physician, Amado Balbuena MD. rn Disposition: 01/26/20 09:17 Discharged to Home. Impression: Puncture wound without foreign body of foot - right. - Condition is Stable. - Discharge Instructions: Puncture Wound. - Prescriptions for Cipro 500 mg Oral Tablet - take 1 tablet by ORAL route every 12 hours for 7 days; 14 tablet. - Medication Reconciliation Form, Thank You Letter, Antibiotic Education, Prescription Opioid Use form. - Follow up: Private Physician; When: 2 - 3 days; Reason: Worsening of condition. - Problem is new. - Symptoms have improved. Signatures: Lara Boyer RN RN Amado Abreu MD MD rn Page, Corey, PA PA cp Brown, Zipporah, RN RN zb Corrections: (The following items were deleted from the chart) 09:43 09:17 01/26/2020 09:17 Discharged to Home. Impression: Puncture wound without foreign zb body of foot - right. Condition is Stable. Forms are Medication Reconciliation Form, Thank You Letter, Antibiotic Education, Prescription Opioid Use. Follow up: Private Physician; When: 2 - 3 days; Reason: Worsening of condition. Problem is new. Symptoms have improved. cp
--- NOTE | 2020-01-26 09:18 | ER ---
Nurse's Notes [facility] Name: Chetan Ya Age: 24 yrs Sex: Male : 1995 Arrival Date: 01/26/2020 Time: 09:03 Bed 15 Private MD: Diagnosis: Puncture wound without foreign body of foot-right Presentation: 01/25 09:00 Initial Sepsis Screen: Does the patient meet any 2 criteria? No. Patient's initial zb sepsis screen is negative. Does the patient have a suspected source of infection? No. Patient's initial sepsis screen is negative. 09:08 Chief complaint: Patient states: stepped on a nail last night to the right foot. sv Coronavirus screen: Client denies travel out of the [place] in the last 14 days. At this time, the client does not indicate any symptoms associated with coronavirus-19. Ebola Screen: No symptoms or risks identified at this time. Risk Assessment: Do you want to hurt yourself or someone else? Patient reports no desire to harm self or others. Onset of symptoms was January 25, 2020. 09:08 Method Of Arrival: Ambulatory 09:08 Acuity: ALEJANDRA 4 sv Triage Assessment: 09:00 General: Appears in no apparent distress. comfortable, Behavior is calm, cooperative, zb appropriate for age. Pain: Complains of pain in right foot Pain currently is 2 out of 10 on a pain scale. Quality of pain is described as dull, Pain began suddenly, 1 day ago. Aggravated by weight bearing. Neuro: Level of Consciousness is awake, alert, obeys commands, Oriented to person, place, time, situation. Cardiovascular: Capillary refill < 3 seconds in bilateral fingers. Respiratory: Airway is patent Respiratory effort is even, unlabored. GI: No signs and/or symptoms were reported involving the gastrointestinal system. Abdomen is flat. : No signs and/or symptoms were reported regarding the genitourinary system. Derm: Skin is healthy with good turgor, Skin is pink, warm \T\ dry. Musculoskeletal: Circulation, motion, and sensation intact. Historical: - Allergies: 09:10 No Known Allergies; sv - PMHx: 09:10 acid reflux; sv - PSHx: 09:10 Hernia repair; sv - Immunization history:: Adult Immunizations unknown, Last tetanus immunization: unknown. - Social history:: Smoking status: unknown. Screenin:00 Abuse screen: Denies threats or abuse. Denies injuries from another. zb 09:00 Tuberculosis screening: No symptoms or risk factors identified. Fall Risk None zb identified. 09:00 Nutritional screening: No deficits noted. zb Assessment: 09:00 Reassessment: SEE triage assessment. zb Vital Signs: 09:08 Weight 74.84 kg; Height 5 ft. 7 in. (170.18 cm); sv 09:31 BP 121 / 86; Pulse 70; Resp 16; Temp 98.6; Pulse Ox 99% on R/A; zb 09:08 Body Mass Index 25.84 (74.84 kg, 170.18 cm) sv ED Course: 09:00 Patient has correct armband on for positive identification. Bed in low position. Call zb light in reach. Door closed. Noise minimized. 09:00 No provider procedures requiring assistance completed. Patient did not have IV access zb during this emergency room visit. 09:03 Patient arrived in ED. mr 09:06 Teresa Alvarez RN is Primary Nurse. zb 09:08 Dangelo Bello PA is PHCP. cp 09:08 Amado Balbuena MD is Attending Physician. cp 09:08 Arm band placed on. sv 09:10 Triage completed. 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 Exp: zb 05/17/2021. Lot #: [id number]. } Route: IM; Site: right deltoid; 09:30 Follow up: Response: No adverse reaction zb Outcome: 09:17 Discharge ordered by . cp 09:42 Discharged to home ambulatory. zb 09:42 Condition: good 09:42 Discharge instructions given to patient, Instructed on discharge instructions, follow up and referral plans. medication usage, Demonstrated understanding of instructions, follow-up care, medications, Prescriptions given X 1. 09:43 Patient left the ED. zb Signatures: Lara Boyer RN ANIBAL peralta Fallon Plummer mr Dnagelo Bello PA PA cp Brown, Zipporah, RN RN ztomeka
[2020-01-26] MEDS ORDERED: TETANUS & DIPHTHERIA TOX,ADULT 0.5 ML VIAL ONE (09:32)
[2020-01-26 14:17] VITALS: BP 121/86; TEMP 98.6; O2SAT 99
== END 2020-01-26 09:43 | disposition home or self-care (01) ==
LOC: ER 08:55
DX: S91.331A Puncture wound without foreign body, right foot, initial encounter (principal); W45.0XXA Nail entering through skin, initial encounter; Y93.01 Activity, walking, marching and hiking; Y92.9 Unspecified place or not applicable; Z23 Encounter for immunization
CPT/HCPCS: 90471; 90714; 99283